=== PATIENT | male | born 2000 | race Hispanic/Latino ===

== ENCOUNTER 2024-10-29 12:22 | Emergency (ER) | payer OTHER ==
[2024-10-29 13:01] LABS: Absolute Basophils 0.1 K/uL (0-0.5); Absolute Eosinophils 0.1 K/uL (0-0.5); Absolute Lymphocytes (CBC) 1.5 K/uL (0.7-4.9); Absolute Monocytes 0.5 K/uL (0.1-1.3); Basophils % 1.1 % (0-1.3); Eosinophils % 2.3 % (0-4.4); Hematocrit 44.3 % (39.6-49.0); Hemoglobin 14.5 g/dL (13.6-17.9); Lymphocytes % 24.5 % (15.3-44.8); MCH 27.4 pg (27.0-35.0); MCHC 32.7 g/dL (32.0-36.0); MCV 83.8 fL (80-100); MPV 7.6 fL (7.6-11.3); Monocytes % 8.2 % (3.3-12.3); Neutrophils % 63.9 % (41.7-73.7); Platelets 235 thou/uL (152-406); RBC Red Blood Cell Count 5.29 M/uL (4.33-5.43); Red Cell Distribution Width 13.3 % (12.1-15.2)
--- NOTE | 2024-10-29 13:01 | RAD REPORT ---
EXAM: CT brain without contrast HISTORY: HEADACHE COMPARISON: None TECHNIQUE: Multiple contiguous axial images were obtained and a CT of the brain without contrast. Sag ittal and coronal reformats were performed. One or more of the following dose reduction techniques were used: Automated exposure control, adjust ment of the mA and/or kV according to patient size, and/or iterative reconstruction. FINDINGS: No evidence of hydrocephalus, intracranial hemorrhage, or extra-axial fluid collection. The brain is normal in morphology. Small polyp versus mucous retention cyst inferior left maxillary antrum and lateral left frontal sinus. The paranasal sinuses and mastoids are otherwise clear. The calvarium is intact. The visualized paranasal sinuses and mastoid air cells are essentially clear . IMPRESSION: No evidence of acute intracranial abnormality.
--- NOTE | 2024-10-29 13:05 | RAD REPORT ---
EXAMINATION: CTA HEAD CLINICAL INDICATION: HEADACHE TECHNIQUE: Axial CT images were obtained through the head after intravenous contrast utilizing angiog raphic protocol with 3D post-processing (maximum intensity projection images, volume rendered images and/or shaded surface rendered images). One or more of the following dose reduction technique s were used: Automated exposure control, adjustment of the mA and/or kV according to patient size, and/or iterative reconstruction. Unless otherwise specified, incidental findings do not require dedic ated imaging follow-up. COMPARISON: No prior exam. FINDINGS: ICA: The petrous, cavernous, and supraclinoid segments of the bilateral internal carotid arteries are normal. The ophthalmic artery origins are visualized and normal. The posterior communicating arteries are patent. JEREMIAH: Anterior cerebral arteries are normal bilaterally. The anterior communicating artery is patent. MCA: Middle cerebral arteries are normal bilaterally. RESEARCH PROFESSIONAL: Posterior cerebral arteries are normal bilaterally. Vertebrobasilar: The vertebral arteries are patent. The basilar artery is normal in appearance. 3D images confirm these findings. IMPRESSION: No significant flow abnormality is identified.
[2024-10-29] MEDS ORDERED: METOCLOPRAMIDE 10 MG/2mL INJ ONE (13:09)
[2024-10-29] MEDS ORDERED: DIPHENHYDRAMINE 50 MG/ML VIAL ONE (13:09)
[2024-10-29] MEDS ORDERED: KETOROLAC 30 MG/ML INJ ONE (13:09)
[2024-10-29] MEDS ORDERED: NA CHLORIDE 0.9% 1,000 ML ONE (13:09)
[2024-10-29 13:16] LABS: Albumin 4.1 g/dL (3.4-5.0); Albumin/Globulin Ratio 1.2 (1.1-1.8); Anion Gap 6.9 mEq/L (5.0-15.0); Bilirubin Total 0.5 mg/dL (0.2-1.0); Globulin 3.3 g/dL (2.3-3.5); Potassium 3.9 mEq/L (3.5-5.1); Protein, Total 7.4 g/dL (6.4-8.2)
--- NOTE | 2024-10-29 13:20 | RAD REPORT ---
EXAMINATION: CTA NECK CLINICAL INDICATION: HEADACHE TECHNIQUE: Axial CT images were obtained from the aortic arch to the skull base after intravenous con trast utilizing angiographic protocol with 3D post-processing (maximum intensity projection images, volume rendered images and/or shaded surface rendered images). One or more of the following dose redu ction techniques were used: Automated exposure control, adjustment of the mA and/or kV according to patient size, and/or iterative reconstruction. Unless otherwise specified, incidental findings do not require dedicated imaging follow-up. COMPARISON: No prior exam. FINDINGS: AORTA: The imaged aortic arch is normal. CCA: The common carotid arteries are patent and normal in caliber. ICA/ECA: Bilateral internal and external carotid arteries are patent. There is no significant interna l carotid artery stenosis. VERTEBRAL: The cervical vertebral arteries are patent. The vertebral arteries are codominant. SOFT TISSUE: No significant neck soft tissue abnormalities. The visualized lung apices are clear. 3D images confirm these findings. IMPRESSION: No significant flow abnormality of the neck vessels is identified. NASCET criteria used. Mild 0-49% stenosis Moderate 50-69% stenosis Severe 70-99% stenosis
[2024-10-29 14:00] LABS: Specific Gravity > 1.030 (1.005-1.030); Urine Bilirubin NEGATIVE (Negative); Urine Blood Negative (Negative); Urine Clarity Clear (Clear); Urine Color Colorless (Yellow); Urine Glucose NEGATIVE (Negative); Urine Ketones NEGATIVE (Negative); Urine Microscopic Reflex YN NO UMIC; Urine Nitrite NEGATIVE (Negative); Urine Protein NEGATIVE (Negative); Urine Urobilinogen Normal (Normal)
--- NOTE | 2024-10-29 14:59 | ER ---
Nurse's Notes [facility] Name: Juan F Zuniga Age: 24 yrs Sex: Male : 2000 Arrival Date: 10/29/2024 Time: 12:22 Bed 20 Private MD: Diagnosis: Headache Presentation: 10/29 12:37 Chief complaint: Patient states: he flew to [place] over the weekend, [facility] he got a severe headache on descent of which he rates an 8/10 on the pain scale. Coronavirus screen: Client presents with at least one sign or symptom that may indicate coronavirus-19. Ebola Screen: No symptoms or risks identified at this time. Initial Sepsis Screen: Does the patient meet any 2 criteria? No. Patient's initial sepsis screen is negative. Does the patient have a suspected source of infection? No. Patient's initial sepsis screen is negative. Risk Assessment: Do you want to hurt yourself or someone else? Patient reports no desire to harm self or others. Onset of symptoms was October 27, 2024. 12:37 Method Of Arrival: Ambulatory ap3 12:37 Acuity: HARINI 3 ap3 Triage Assessment: 12:39 Headache History: Denies prior headaches. General: Appears in no apparent distress. ap3 Behavior is calm, cooperative, appropriate for age. Pain: Complains of pain in head Pain currently is 8 out of 10 on a pain scale. Pain began 2-3 days ago. Neuro: Level of Consciousness is awake, alert, obeys commands, Oriented to person, place, time, situation, Appropriate for age Reports headache. Cardiovascular: Patient's skin is warm and dry. Respiratory: Airway is patent Respiratory effort is even, unlabored, Respiratory pattern is regular, symmetrical. 15:06 Pain: Also complains of no other associated symptoms. tm6 Historical: - Allergies: 12:38 No Known Allergies; ap3 - PMHx: 12:38 Hypercholesterolemia; ap3 - Immunization history:: Client reports having NOT received the Covid vaccine. Flu vaccine is not up to date. - Infectious Disease History:: Denies. - Social history:: Smoking status: Patient reports use of chewing tobacco. Screenin:40 [facility] ED Fall Risk Assessment (Adult) History of falling in the last 3 months, ap3 including since admission No falls in past 3 months (0 pts) Confusion or Disorientation No (0 pts) Intoxicated or Sedated No (0 pts) Impaired Gait No (0 pts) Mobility Assist Device Used No (0 pt) Altered Elimination No (0 pt) Score/Fall Risk Level 0 - 2 = Low Risk Oriented to surroundings, Maintained a safe environment, Educated pt \T\ family on fall prevention, incl call for assistance when getting out of bed, Assessed \T\ reinforced patient's understanding of fall precautions, Hourly rounding (assess needs \T\ fall precautionary measures) done, Used ambulatory aids as needed (educated on \T\ assisted with), Used gait belt as appropriate. Abuse screen: Denies threats or abuse. Nutritional screening: No deficits noted. Tuberculosis screening: No symptoms or risk factors identified. Assessment: 12:37 General: Appears in no apparent distress. uncomfortable, Behavior is calm, cooperative. tm6 Pain: Complains of pain in head Pain currently is 10 out of 10 on a pain scale. Quality of pain is described as aching. Neuro: Level of Consciousness is awake, alert, obeys commands, Oriented to person, place, time, situation, Reports headache. Cardiovascular: Patient's skin is warm and dry. Respiratory: Airway is patent Respiratory effort is even, unlabored, Respiratory pattern is regular, symmetrical. GI: No signs and/or symptoms were reported involving the gastrointestinal system. Abdomen is flat, non-distended. : No signs and/or symptoms were reported regarding the genitourinary system. EENT: No signs and/or symptoms were reported regarding the EENT system. Derm: No signs and/or symptoms reported regarding the dermatologic system. Musculoskeletal: No signs and/or symptoms reported regarding the musculoskeletal system. Vital Signs: 12:37 BP 143 / 94; Pulse 77; Resp 18; Temp 97.4; Pulse Ox 100% ; Weight 92.99 kg; Height 6 ap3 ft. 0 in. ; Pain 8/10; 14:15 BP 119 / 77; Pulse 95; Pulse Ox 96% on R/A; MAP 88 mmHg; Pain 2/10; tm6 15:00 BP 116 / 74; Pulse 65; Resp 16; Temp 97.4; Pulse Ox 99% on R/A; MAP 87 mmHg; Pain 1/10; tm6 12:37 Body Mass Index 27.80 (92.99 kg, 182.88 cm) ap3 12:37 Pain Scale: Adult ap3 14:15 Pain Scale: Adult tm6 15:00 Pain Scale: Adult tm6 Karen Coma Score: 14:45 Eye Response: spontaneous(4). Motor Response: obeys commands(6). Verbal Response: lc oriented(5). Total: 15. 14:49 Eye Response: spontaneous(4). Motor Response: obeys commands(6). Verbal Response: lc oriented(5). Total: 15. NIH Stroke Scale Scores: 14:58 NIHSS Score: 0 lc ED Course: 12:25 Patient arrived in ED. sj2 12:31 Sarabjit Chapman MD is Attending Physician. lc 12:37 Patient has correct armband on for positive identification. Bed in low position. Call tm6 light in reach. Side rails up X 1. Provided Education on: use of call kn[place]. Client placed on continuous cardiac and pulse oximetry monitoring. NIBP monitoring applied. Pulse ox on. NIBP on. Door closed. Noise minimized. Lights dimmed. Warm blanket given. Pillow given. 12:37 No provider procedures requiring assistance completed. Inserted saline lock: 20 gauge tm6 in right antecubital area, using aseptic technique. Blood collected. Flushed with 10 mL NS. 12:38 Evan Rodríguez, RN is Primary Nurse. tm6 12:38 Triage completed. ap3 12:40 Arm band placed on right wrist. ap3 12:55 CT Head Brain wo Cont In Process Unspecified. EDMS 12:56 CT Head Angio In Process Unspecified. EDMS 12:56 CT Neck Angio In Process Unspecified. EDMS 14:58 Jonathan Mason MD is Referral Physician. lc 15:07 IV discontinued, intact, bleeding controlled, No redness/swelling at site. Pressure tm6 dressing applied. Administered Medications: 13:23 Drug: NS 0.9% IV 1000 ml IV at 1 bolus Per protocol; to be given as a bolus over 60 tm6 minutes Route: IV; Rate: 1 bolus; Site: right antecubital; 14:39 Follow up: Response: No adverse reaction; IV Status: Completed infusion; IV Intake: tm6 1000ml 13:23 Drug: Ketorolac IVP 30 mg IVP once Route: IVP; Site: right antecubital; tm6 14:39 Follow up: Response: No adverse reaction tm6 13:23 Drug: metoCLOPramide IVP 10 mg IVP once; over 1 to 2 minutes Route: IVP; Site: right tm6 antecubital; 14:39 Follow up: Response: No adverse reaction tm6 13:23 Drug: diphenhydrAMINE IVP 50 mg IVP once Route: IVP; Site: right antecubital; tm6 14:39 Follow up: Response: No adverse reaction tm6 Medication: 12:37 VIS not applicable for this client. tm6 Intake: 14:39 IV: 1000ml; Total: 1000ml. tm6 Outcome: 14:59 Discharge ordered by MD. lc 15:07 Discharged to home ambulatory, with family, tm6 15:07 Condition: stable 15:07 Discharge instructions given to patient, family, Instructed on discharge instructions, follow up and referral plans. medication usage, Demonstrated understanding of instructions, follow-up care, medications, Prescriptions given X 2, 15:07 Patient left the ED. tm6 NIH Stroke Scale - NIH Stroke Score Date: 10/29/2024 Time: 14:58 Total Score = 0 10. Dysarthria (speech clarity - read or repeat words) - 0(Normal) 11. Extinction and Inattention (visual/tactile/auditory/spatial/personal) - 0(No abnormality) 1a. Level of Consciousness (LOC) - 0(Alert) 1b. Level of Consciousness (LOC) (Month \T\ Age) - 0(Both) 1c. LOC Commands (Open \T\ Closes Eyes/Farm Tractor Operator) - 0(Both) 2. Best Gaze (Lateral Gaze Paresis) - 0(Normal) 3. Visual Field Loss - 0(No visual loss) 4. Facial Palsy - 0(Normal) 5a. Left Arm: Motor (10-second hold) - 0(No drift) 5b. Right Arm: Motor (10-second hold) - 0(No drift) 6a. Left Leg: Motor (5-second hold - always test supine) - 0(No drift) 6b. Right Leg: Motor (5-second hold - always test supine) - 0(No drift) 7. Limb Ataxia (finger/nose \T\ heel/garibay - test with eyes open) - 0(Absent) 8. Sensory Loss (pinprick arms/legs/face) - 0(Normal) 9. Best Language: Aphasia (description/naming/reading) - 0(No aphasia) Initials: lc Signatures: Dispatcher [employer] Sarabjit Castañeda MD MD cha Prokisch, Amanda RN RN ap3 Evan Rodríguez RN RN tm6 Devon Harrington sj2 Corrections: (The following items were deleted from the chart) 12:39 12:38 PMHx: None; ap3 ap3
--- NOTE | 2024-10-29 14:59 | EDPHYS ---
Physician Documentation [facility] Name: Juan F Zuniga Age: 24 yrs Sex: Male : 2000 Arrival Date: 10/29/2024 Time: 12:22 Bed 20 Private MD: ED Physician Sarabjit Chapman HPI: 10/29 14:39 This 24 yrs old Male presents to ER via Ambulatory with complaints of Headache lc > 24hrs Old. 14:39 The patient complains of pain to the left latter-day and left temporal area. The patient lc describes the headache as constant. Onset: The symptoms/episode began/occurred 3 day(s) ago. Associated signs and symptoms: The patient has no apparent associated signs or symptoms. Severity of symptoms: At its worst the pain was moderate, in the emergency department the pain is unchanged. Headache History: Denies prior headaches. The symptoms are alleviated by quiet, remaining still, the symptoms are aggravated by movement, noise. The patient has not experienced similar symptoms in the past, not worst, not sudden. Historical: - Allergies: 12:38 No Known Allergies; ap3 - PMHx: 12:38 Hypercholesterolemia; ap3 - Immunization history:: Client reports having NOT received the Covid vaccine. Flu vaccine is not up to date. - Infectious Disease History:: Denies. - Social history:: Smoking status: Patient reports use of chewing tobacco. ROS: 14:45 Constitutional: Negative for fever, chills, and weight loss, Eyes: Negative for injury, lc pain, redness, and discharge, ENT: Negative for injury, pain, and discharge, Neck: Negative for injury, pain, and swelling, Cardiovascular: Negative for chest pain, palpitations, and edema, Respiratory: Negative for shortness of breath, cough, wheezing, and pleuritic chest pain, Abdomen/GI: Negative for abdominal pain, nausea, vomiting, diarrhea, and constipation, Back: Negative for injury and pain, : Negative for injury, bleeding, discharge, and swelling, MS/Extremity: Negative for injury and deformity, Skin: Negative for injury, rash, and discoloration, Psych: Negative for depression, anxiety, suicide ideation, homicidal ideation, and hallucinations, Allergy/Immunology: Negative for hives, rash, and allergies, Endocrine: Negative for neck swelling, polydipsia, polyuria, polyphagia, and marked weight changes, Hematologic/Lymphatic: Negative for swollen nodes, abnormal bleeding, and unusual bruising, 14:45 Neuro: Positive for headache, Exam: 14:45 Constitutional: This is a well developed, well nourished patient who is awake, alert, lc and in no acute distress. Head/Face: Normocephalic, atraumatic. Eyes: Pupils equal round and reactive to light, extra-ocular motions intact. Lids and lashes normal. Conjunctiva and sclera are non-icteric and not injected. Cornea within normal limits. Periorbital areas with no swelling, redness, or edema. ENT: Nares patent. No nasal discharge, no septal abnormalities noted. Tympanic membranes are normal and external auditory canals are clear. Oropharynx with no redness, swelling, or masses, exudates, or evidence of obstruction, uvula midline. Mucous membranes moist. Neck: Trachea midline, no thyromegaly or masses palpated, and no cervical lymphadenopathy. Supple, full range of motion without nuchal rigidity, or vertebral point tenderness. No Meningismus. Chest/axilla: Normal chest wall appearance and motion. Nontender with no deformity. No lesions are appreciated. Cardiovascular: Regular rate and rhythm with a normal S1 and S2. No gallops, murmurs, or rubs. Normal PMI, no JVD. No pulse deficits. Respiratory: Lungs have equal breath sounds bilaterally, clear to auscultation and percussion. No rales, rhonchi or wheezes noted. No increased work of breathing, no retractions or nasal flaring. Abdomen/GI: Soft, non-tender, with normal bowel sounds. No distension or tympany. No guarding or rebound. No evidence of tenderness throughout. Back: No spinal tenderness. No costovertebral tenderness. Full range of motion. Male : Normal genitalia with no discharge or lesions. Skin: Warm, dry with normal turgor. Normal color with no rashes, no lesions, and no evidence of cellulitis. MS/ Extremity: Pulses equal, no cyanosis. Neurovascular intact. Full, normal range of motion., bilateral aka Psych: Awake, alert, with orientation to person, place and time. Behavior, mood, and affect are within normal limits. 14:45 Neuro: Orientation: is normal, appropriate for stated age, no acute changes, Mentation: is normal, appropriate for stated age, no acute changes, Memory: is normal, appropriate for stated age, no acute changes, Cranial nerves: grossly normal, is grossly normal based on the patient's age, no acute changes, Cerebellar function: is grossly normal, is grossly normal based on the patient's age, no acute changes, Motor: is normal, is grossly normal based on the patient's age, no acute changes, moves all fours, strength is normal, Sensation: is normal, no obvious gross deficits, appropriate no acute changes, Gait: not tested. Deep tendon reflexes are 2+ (normal) in the bilateral brachioradialis, bicep, tricep and patellar and Achilles tendons, seizure activity, is not displayed by the patient, Vital Signs: 12:37 BP 143 / 94; Pulse 77; Resp 18; Temp 97.4; Pulse Ox 100% ; Weight 92.99 kg; Height 6 ap3 ft. 0 in. ; Pain 8/10; 14:15 BP 119 / 77; Pulse 95; Pulse Ox 96% on R/A; MAP 88 mmHg; Pain 2/10; tm6 15:00 BP 116 / 74; Pulse 65; Resp 16; Temp 97.4; Pulse Ox 99% on R/A; MAP 87 mmHg; Pain 1/10; tm6 12:37 Body Mass Index 27.80 (92.99 kg, 182.88 cm) ap3 12:37 Pain Scale: Adult ap3 14:15 Pain Scale: Adult tm6 15:00 Pain Scale: Adult tm6 NIH Stroke Scale Scores: 14:58 NIHSS Score: 0 lc Karen Coma Score: 14:45 Eye Response: spontaneous(4). Motor Response: obeys commands(6). Verbal Response: lc oriented(5). Total: 15. 14:49 Eye Response: spontaneous(4). Motor Response: obeys commands(6). Verbal Response: lc oriented(5). Total: 15. MDM: 12:31 Medical Screening Exam initiated lc 14:49 Differential diagnosis: cervical epidural bleed, cluster headache, cerebral vascular lc accident, hypertensive headache, hypoglycemia, hyponatremia, intracerebral hemorrhage, meningitis, migraine, neoplasm, subarachnoid bleed, subdural hematoma, temporal arteritis, trigeminal neuralgia, uremia, vasomotor headache. Data reviewed: vital signs, nurses notes, lab test result(s), radiologic studies, CT scan. Consideration of Admission/Observation Escalation of care including admission/observation considered. I considered the following discharge prescriptions or medication management in the emergency department Medications were administered in the Emergency Department. See MAR. Independent interpretation of the following test(s) in the Emergency Department CT Scan: My interpretation is ct head, cta head and neck. Test considered but Not performed: MRI: no mri. Historians other than the Patient: Spouse/Significant Other: well informed. Care significantly affected by the following chronic conditions: high chollesterol. 10/29 12:34 Order name: CBC with Diff; Complete Time: 14:05 [facility] 10/29 12:34 Order name: CMP; Complete Time: 14:05 [facility] 10/29 12:34 Order name: Urinalysis w/ reflexes; Complete Time: 14:05 [facility] 10/29 12:34 Order name: CT Head Brain wo Cont; Complete Time: 14:05 [facility] 10/29 12:34 Order name: CT Head Angio; Complete Time: 14:05 [facility] 10/29 12:34 Order name: CT Neck Angio; Complete Time: 14:05 [facility] 10/29 12:34 Order name: Oxygen: 2 LITERS; Complete Time: 13:23 lc Administered Medications: 13:23 Drug: NS 0.9% IV 1000 ml IV at 1 bolus Per protocol; to be given as a bolus over 60 tm6 minutes Route: IV; Rate: 1 bolus; Site: right antecubital; 14:39 Follow up: Response: No adverse reaction; IV Status: Completed infusion; IV Intake: tm6 1000ml 13:23 Drug: Ketorolac IVP 30 mg IVP once Route: IVP; Site: right antecubital; tm6 14:39 Follow up: Response: No adverse reaction tm6 13:23 Drug: metoCLOPramide IVP 10 mg IVP once; over 1 to 2 minutes Route: IVP; Site: right tm6 antecubital; 14:39 Follow up: Response: No adverse reaction tm6 13:23 Drug: diphenhydrAMINE IVP 50 mg IVP once Route: IVP; Site: right antecubital; tm6 14:39 Follow up: Response: No adverse reaction tm6 Disposition Summary: 10/29/24 14:59 Discharge Ordered Notes: Location: Home lc Problem: new lc Symptoms: have improved lc Condition: Stable lc Diagnosis - Headache lc Followup: lc - With: Private Physician - When: 2 - 3 days - Reason: Recheck today's complaints, Continuance of care, Re-evaluation by your physician Followup: lc - With: Jonathan Mason MD - When: 2 - 3 days - Reason: Recheck today's complaints, Re-evaluation by your physician Discharge Instructions: - Discharge Summary Sheet lc - General Headache Without Cause lc - General Headache Without Cause, [id number] Forms: - Medication Reconciliation Form lc - Antibiotic Education lc - Prescription Opioid Use lc - Patient Portal Instructions [facility] - Leadership Thank You Letter [facility] Prescriptions: - Fioricet with Codeine 05-833-80-30 mg Oral capsule - take 2 capsule ORAL route every 4 hours as needed for pain; do not exceed 6 lc caps per day; 20 capsule; Refills: 0, Product Selection Permitted - ondansetron 4 mg Oral Tablet,disintegrating - take 1 tablet ORAL route every 6 hours prn nausea; 20 tablet; Refills: 0, lc Product Selection Permitted NIH Stroke Scale - NIH Stroke Score Date: 10/29/2024 Time: 14:58 Total Score = 0 10. Dysarthria (speech clarity - read or repeat words) - 0(Normal) 11. Extinction and Inattention (visual/tactile/auditory/spatial/personal) - 0(No abnormality) 1a. Level of Consciousness (LOC) - 0(Alert) 1b. Level of Consciousness (LOC) (Month \T\ Age) - 0(Both) 1c. LOC Commands (Open \T\ Closes Eyes/Autocad Designer) - 0(Both) 2. Best Gaze (Lateral Gaze Paresis) - 0(Normal) 3. Visual Field Loss - 0(No visual loss) 4. Facial Palsy - 0(Normal) 5a. Left Arm: Motor (10-second hold) - 0(No drift) 5b. Right Arm: Motor (10-second hold) - 0(No drift) 6a. Left Leg: Motor (5-second hold - always test supine) - 0(No drift) 6b. Right Leg: Motor (5-second hold - always test supine) - 0(No drift) 7. Limb Ataxia (finger/nose \T\ heel/garibay - test with eyes open) - 0(Absent) 8. Sensory Loss (pinprick arms/legs/face) - 0(Normal) 9. Best Language: Aphasia (description/naming/reading) - 0(No aphasia) Initials: lc Signatures: Dispatcher [employer] EDMS Sarabjit Chapman MD MD cha Prokisch, Amanda RN RN ap3 Evan Rodríguez RN RN tm6 Corrections: (The following items were deleted from the chart) 12:34 12:34 CBC+H.LAB.BRZ ordered. EDMS EDMS 12:34 12:34 COMPREHENSIVE METABOLIC PANEL+C.LAB.BRZ ordered. EDMS EDMS 12:34 12:34 Urinalysis+U.LAB.BRZ ordered. EDMS EDMS 12:34 12:34 Head Brain Wo Cont+CT.RAD.BRZ ordered. EDMS EDMS 12:34 12:34 Head Angio+CT.RAD.BRZ ordered. EDMS EDMS 12:34 12:34 Neck Angio+CT.RAD.BRZ ordered. EDMS EDMS 12:39 12:38 PMHx: None; ap3 ap3
[2024-10-29 15:48] VITALS: TEMP 97.4
[2024-10-29 15:51] VITALS: BP 116/74; O2SAT 99
== END 2024-10-29 15:07 | disposition home or self-care (01) ==
LOC: ER 12:22
DX: R51.9 Headache, unspecified (principal); E78.00 Pure hypercholesterolemia, unspecified; F17.220 Nicotine dependence, chewing tobacco, uncomplicated
CPT/HCPCS: 96361; 85025; 36415; 81003; 80053; 70450; 70496; 70498; 96375; 96374; 99284; Q9967; J2765; J1200; J7030